=== PATIENT | male | born 1965 | race Caucasian/White ===

== ENCOUNTER 2017-07-29 11:01 | Emergency (ER) | payer OTHER ==
[~2017-07-29] VITALS: Ht 182.9 cm; Wt 172.4 kg
[2017-07-29 11:15] VITALS: BP 123/87
[2017-07-29] MEDS ORDERED: HYDROCHLOROTHIA25 M2 PO (11:19)
[2017-07-29] MEDS ORDERED: LISINOPRIL10 MG PO (11:19)
[2017-07-29] MEDS ORDERED: ZPAK PO (11:21)
[2017-07-29] MEDS ORDERED: PREDNISONE 20 M20 M1 PO (11:21)
== END 2017-07-29 11:33 | disposition home or self-care (01) ==
LOC: M.ERS 11:01
DX: J06.9 Acute upper respiratory infection, unspecified (principal); I10 Essential (primary) hypertension